=== PATIENT | female | born 1990 | race African-American/Black ===

== ENCOUNTER 2018-05-06 19:00 | Emergency (ER) | payer SELFPAY ==
[~2018-05-06] VITALS: Ht 167.6 cm; Wt 95.3 kg
[2018-05-06 19:23] VITALS: BP 121/81
[2018-05-06] MEDS ORDERED: Promethazine/Codeine 5ml UD ORAL ONE (19:30)
[2018-05-06] MEDS: Ipratropium 0.02% Inh Soln 2.5ml UD HHN SCH ×3 (19:55→20:09)
[2018-05-06] MEDS: Albuterol ud Inhalation HHN SCH ×3 (19:55→20:09)
[2018-05-06] MEDS ORDERED: Albuterol ud Inhalation HHN ONE (21:15)
[2018-05-06] MEDS ORDERED: Ipratropium 0.02% Inh Soln 2.5ml UD HHN ONE (21:15)
[2018-05-06] MEDS ORDERED: PREDNISONE20 MG ORAL (21:59)
[2018-05-06] MEDS ORDERED: PROMETHAZINE-C118 M1 ORAL (21:59)
[2018-05-06] MEDS ORDERED: ALBUTEROL SULF8.5 GM INH (21:59)
[2018-05-06 22:26] VITALS: BP 115/60
--- NOTE | 2018-05-07 00:03 | Emergency Room Report ---
History of Present Illness General Chief Complaint: Dyspnea/Respdistress Source: Patient Present Illness HPI 28-year-old female presents ED complaining of shortness of breath. History of asthma. States her inhaler has not been working 1 day. Cough is productive with yellowish phlegm. Denies chest pain. Denies fevers or chills. The knife sick contacts or recent travel. Admits to smoking. No other aggravating relieving factors. Denies any other associated symptoms Allergies: Coded Allergies: No Known Allergies (Unverified , 05/06/18) Patient History Past Medical History: asthma Past Surgical History: none Pertinent Family History: none Social History: Denies: smoking, alcohol use, drug use Last Menstrual Period: last week Now: No Immunizations: UTD Reviewed Nursing Documentation: PMH: Agreed; PSxH: Agreed Nursing Documentation-PMH Past Medical History: No History, Except For Hx Asthma: Yes Review of Systems All Other Systems: negative except mentioned in HPI Physical Exam Vital Signs Date Time Temp Pulse Resp B/P (MAP) Pulse Ox O2 Delivery O2 Flow Rate FiO2 05/06/18 19:14 98.0 70 22 121/81 96 Room Air 98.1 05/06/18 19:30 21 Sp02 EP Interpretation: reviewed, normal General Appearance: no apparent distress, alert, GCS 15, non-toxic Head: normocephalic, atraumatic Eyes: bilateral eye normal inspection, bilateral eye PERRL ENT: hearing grossly normal, normal pharynx, no angioedema, normal voice Neck: full range of motion, supple/symm/no masses Respiratory: chest non-tender, speaking full sentences, wheezing Cardiovascular #1: regular rate, rhythm, no edema Cardiovascular #2: 2+ carotid (R), 2+ carotid (L), 2+ radial (R), 2+ radial (L) , 2+ dorsalis pedis (R), 2+ dorsalis pedis (L) Gastrointestinal: normal bowel sounds, non tender, soft, non-distended, no guarding, no rebound Rectal: deferred Genitourinary: normal inspection, no CVA tenderness Musculoskeletal: back normal, gait/station normal, normal range of motion, non- tender Neurologic: alert, oriented x3, responsive, motor strength/tone normal, sensory intact, speech normal Psychiatric: judgement/insight normal, memory normal, mood/affect normal, no suicidal/homicidal ideation Reflexes: 3+ bicep (R), 3+ bicep (L), 3+ tricep (R), 3+ tricep (L), 3+ knee (R) , 3+ knee (L) Skin: normal color, no rash, warm/dry, well hydrated Lymphatic: no adenopathy Medical Decision Making Diagnostic Impression: Primary Impression: Asthma Qualified Codes: J45.20 - Mild intermittent asthma, uncomplicated ER Course Hospital Course 28-year-old female presents to ED complaining of cough, wheezing Differential diagnoses include: URI, bronchitis, asthma/COPD, pneumonia Clinical course Patient placed on stretcher. After initial history, physical exam reveals a female in no acute distress. Bilateral TM unremarkable. No pharyngeal erythema. No tonsillar exudates. No lymphadenopathy. Mild wheezing noted on exam, no signs of respiratory distress or retractions. Patient given Prednisone , promethazine and albuterol treatment in ED with symptoms improved. Reassurance given Diagnosis - asthma exacerbation Stable and discharged home with prescriptions for albtuerol, prednisone, promethazine/codeine. Instructed to followup with PMD. Return to ED if symptoms recur or worsen Last Vital Signs Date Time Temp Pulse Resp B/P (MAP) Pulse Ox O2 Delivery O2 Flow Rate FiO2 05/06/18 21:59 88 20 100 Room Air 21 05/06/18 19:23 98.1 121/81 98.1 Status: improved Disposition: HOME, SELF-CARE Condition: Stable Scripts Codeine/Promethazine Hcl* (PROMETHAZINE-CODEINE SYRUP*) 118 Ml Syrup 5 ML ORAL Q6H PRN for For Cough, #118 ML 0 Refills Prov: Hamlet Aldrich MD 05/06/18 Prednisone* (PREDNISONE*) 20 Mg Tablet 40 MG ORAL DAILY, #10 TAB Prov: Hamlet Aldrich MD 05/06/18 Albuterol Sulfate* (ALBUTEROL SULFATE MDI*) 8.5 Gm Hfa.aer.ad 2 PUFF INH Q6H, #1 EA 0 Refills Prov: Hamlet Aldrich MD 05/06/18 Referrals: NOT CHOSEN IPA/,REFERRING (PCP) Patient Instructions: Asthma, Adult Hamlet Aldrich MD May 07, 2018 00:03
== END 2018-05-06 22:26 | disposition home or self-care (01) ==
LOC: EMR 21:26
DX: J45.901 Unspecified asthma with (acute) exacerbation (principal)
CPT/HCPCS: 94640; 94664; 99284; J7512

== ENCOUNTER 2019-03-18 10:24 | Emergency (ER) | payer OTHER ==
[~2019-03-18] VITALS: Ht 165.1 cm; Wt 95.3 kg
[~2019-03-18 10:24] MED LIST: ALBUTEROL SULF8.5 GM INH; PREDNISONE20 MG ORAL; PROMETHAZINE-C118 M1 ORAL
--- NOTE | 2019-03-18 10:53 | NUR ---
ED Nurse Note: Pt came in from home due to lower abdominal pain, stabbing pain 8/10 carlene with nausea x 3 days. Pt described " feels like gas". Abdomen soft to touch, bowel sounds all quadrants heard. Last bowel movement was this morning. AOx4, VSS carlene. Will cont to monitor.
[2019-03-18 10:54] VITALS: BP 109/69
[2019-03-18 11:08] LABS: BASOPHILS % (AUTO) 1.3 % (0.0-2.0); EOSINOPHILS % (AUTO) 2.9 % (0.0-3.0); HEMATOCRIT 43.9 % (37.0-47.0); HEMOGLOBIN 14.3 G/DL (12.0-16.0); LYMPHOCYTES % (AUTO) 20.8 % (20.0-45.0); MEAN CORPUSCULAR VOLUME 92 FL (80-99); MONOCYTES % (AUTO) 6.1 % (1.0-10.0); NEUTROPHILS % (AUTO) 68.9 % (45.0-75.0); PLATELET COUNT 268 K/UL (150-450); RED BLOOD COUNT 4.78 M/UL (4.20-5.40); RED CELL DISTRIBUTION WIDTH 11.8 % (11.6-14.8); WHITE BLOOD COUNT 8.9 K/UL (4.8-10.8)
[2019-03-18 11:10] LABS: APPEARANCE,URINE CLEAR; BILIRUBIN, URINE NEGATIVE (NEGATIVE); GLUCOSE, URINE (UA) NEGATIVE (NEGATIVE); KETONES,URINE NEGATIVE (NEGATIVE); LEUKOCYTE ESTERASE ,URINE 1+ (NEGATIVE); NITRITE,URINE POSITIVE (NEGATIVE); PH,URINE 6 (4.5-8.0); PROTEIN,URINE 1+ (NEGATIVE); UROBILINOGEN,URINE NORMAL MG/DL (0.0-1.0)
[2019-03-18 11:11] LABS: COLOR,URINE YELLOW
[2019-03-18 11:18] LABS: ANION GAP 6 mmol/L (5-15); BLOOD UREA NITROGEN 6 mg/dL (7-18); CALCIUM 8.9 MG/DL (8.5-10.1); CARBON DIOXIDE 28 MMOL/L (21-32); CHLORIDE 103 MMOL/L (98-107); CREATININE 0.9 MG/DL (0.55-1.30); POTASSIUM 3.7 MMOL/L (3.5-5.1); SODIUM 137 MMOL/L (136-145)
[2019-03-18 11:22] LABS: ALANINE AMINOTRANSFERASE 9 U/L (12-78); ALBUMIN 3.6 G/DL (3.4-5.0); ALBUMIN/GLOBULIN RATIO 1.1 (1.0-2.7); ALKALINE PHOSPHATASE 77 U/L (46-116); ASPARTATE AMINO TRANSFERASE 14 U/L (15-37); BILIRUBIN,TOTAL 0.4 MG/DL (0.2-1.0)
--- NOTE | 2019-03-18 12:22 | NUR ---
ED Nurse Note: pt cried and scream for pain. Dr. Best notified. will wait for the order.
--- NOTE | 2019-03-18 12:36 | NUR ---
ED Nurse Note: pt went to US by wheelchair.
--- NOTE | 2019-03-18 13:16 | NUR ---
ED Nurse Note: Pt back from CT, no signs of acute distress.
--- NOTE | 2019-03-18 13:35 | Emergency Room Report ---
History of Present Illness General Chief Complaint: Abdominal Pain Source: Patient Present Illness HPI 29-year-old female with no medical problems presents with pelvic pain for the past few days, intermittent and severe, reports is not unilateral, but in the midline, she reports she has had similar episodes in the past and has been attributed to fibroids. She did not try any medications for it recently denies fevers, urinary complaints, changes with p.o. intake, reports it is worse with certain positioning. Allergies: Coded Allergies: No Known Allergies (Unverified , 05/06/18) Patient History Past Medical History: see triage record Last Menstrual Period: 02/16/19 Reviewed Nursing Documentation: PMH: Agreed; PSxH: Agreed Nursing Documentation-PMH Past Medical History: No History, Except For Hx Asthma: Yes Review of Systems All Other Systems: negative except mentioned in HPI Physical Exam Vital Signs Date Time Temp Pulse Resp B/P (MAP) Pulse Ox O2 Delivery O2 Flow Rate FiO2 03/18/19 10:26 98.2 77 16 114/74 (87) 96 Room Air Sp02 EP Interpretation: reviewed, normal General Appearance: no apparent distress, alert, non-toxic Head: normocephalic Eyes: bilateral eye normal inspection, bilateral eye PERRL, bilateral eye EOMI ENT: normal ENT inspection, hearing grossly normal, normal pharynx, no angioedema, normal voice, moist mucus membranes Neck: normal inspection, full range of motion, supple, supple/symm/no masses Respiratory: chest non-tender, lungs clear, normal breath sounds, chest symmetrical, palpation of chest normal Cardiovascular #1: normal peripheral pulses, regular rate, rhythm Cardiovascular #2: 2+ radial (R), 2+ radial (L) Gastrointestinal: normal inspection, soft, no mass, no guarding, no rebound, tenderness - Positive suprapubic tenderness Rectal: deferred Genitourinary: normal inspection, no CVA tenderness Musculoskeletal: back normal, gait/station normal, normal range of motion, non- tender, no calf tenderness Neurologic: alert, responsive, seismic engineer III-XII nml as tested, motor strength/tone normal, sensory intact, speech normal Psychiatric: judgement/insight normal, memory normal, mood/affect normal Lymphatic: no adenopathy Medical Decision Making Diagnostic Impression: Primary Impression: Fibroids ER Course Patient found to have ultrasound consistent with fibroid, 11 cm mass, normal flow to both ovaries, small amount of physiologic fluid, unremarkable labs urine. Will discharge with Tylenol with hydrocodone, Motrin, follow-up with gynecology. Last Vital Signs Date Time Temp Pulse Resp B/P (MAP) Pulse Ox O2 Delivery O2 Flow Rate FiO2 03/18/19 12:15 98.2 03/18/19 10:54 58 21 109/69 98 Room Air Disposition: HOME, SELF-CARE Condition: Stable Referrals: NON PHYSICIAN (PCP) SONG VARGHESE M.D Mar 18, 2019 13:35
[2019-03-18] MEDS ORDERED: NORCO 5-325 TA1 EACH ORAL (13:36)
[2019-03-18] MEDS ORDERED: IBUPROFEN600 MG ORAL (13:36)
[2019-03-18 13:44] VITALS: BP 114/71
[2019-03-18 13:45] VITALS: BP 109/69
--- NOTE | 2019-03-18 13:45 | NUR ---
ER DISCHARGE NOTE: Patient is cleared to be discharged per ERMD, pt is aox4, on room air, with stable vital signs. pt was given dc and prescription instructions, pt was able to verbalize understanding, pt id band and iv site removed without complications. pt is able to ambulate with steady gait. pt took all belongings.
--- NOTE | 2019-03-18 14:21 | Diagnostic Imaging Report ---
Indication:Lower abdominal and pelvic pain Technique: Grayscale and duplex Doppler imaging of the pelvis performed utilizing a transabdominal and endovaginal scan. Comparison: None Findings: There is a heterogeneous mass projecting off the fundus of the uterus or adjacent to the uterus measuring 11 cm. This is probably a fibroid although connection with the uterine fundus is not demonstrated. The right ovary is seen transabdominally and shows a normal dopplerable blood flow. The left ovary is seen endovaginally and shows good dopplerable blood flow with a few follicles. There is a small amount of free fluid within the cul-de-sac. The endometrium is about 6 mm in thickness and uniformly echogenic. Uterus measures 9 x 4 x 4 cm excluding the fibroid. Left ovary measures 4.3 x 2.2 x 3.5 cm. Right ovary 4.6 x 2.3 x 4.0 cm. IMPRESSION: Heterogeneous mass approximately 11 cm adjacent to or arising from the fundus of the uterus. This is most likely a fibroid.
== END 2019-03-18 13:45 | disposition home or self-care (01) ==
LOC: EMR 11:15
DX: D25.9 Leiomyoma of uterus, unspecified (principal); J45.909 Unspecified asthma, uncomplicated
CPT/HCPCS: 36415; 76830; 76856; 80053; 81003; 81025; 83690; 85025; 99284